=== PATIENT | female | born 1965 | race Caucasian/White ===

== ENCOUNTER 2016-08-16 09:29 | Emergency (ER) | payer BC ==
[~2016-08-16] VITALS: Ht 154.9 cm; Wt 74.8 kg
[2016-08-16 11:59] LABS: BASOPHIL % 0.4 % (0-2); PLATELET COUNT 213 x10^3mcL (130-400); RED CELL DISTRIBUTION WIDTH 13.2 % (11.5-14.5)
[2016-08-16 12:15] LABS: UA SPECIFIC GRAVITY <=1.005 (1.005-1.035); microscopic required? YES; urine erythrocyte 1+ (NEGATIVE)
[2016-08-16 12:30] LABS: ALBUMIN 4.1 g/dL (3.4-5.0); ALKALINE PHOSPHATASE 83 U/L (46-116); ALT/SGPT 52 U/L (14-59); AST/SGOT 38 U/L (15-37); BILIRUBIN TOTAL 0.97 mg/dL (0.20-1.00); CALCIUM 9.1 mg/dL (8.5-10.1); CARBON DIOXIDE 28.1 mmol/L (21-32); CREATININE SERUM 0.9 mg/dL (0.6-1.0); GFR1 > 60 mL/min; GLUCOSE SERUM 96 mg/dL (74-106)
[2016-08-16 12:34] LABS: TOTAL PROTEIN, SERUM 8.7 g/dL (6.4-8.2)
[2016-08-16 13:02] LABS: CHLORIDE SERUM 102 mmol/L (98-107); POTASSIUM SERUM 3.5 mmol/L (3.5-5.1); SODIUM SERUM 139 mmol/L (136-145)
[2016-08-16 15:06] VITALS: BP 138/75
== END 2016-08-16 15:06 | disposition home or self-care (01) ==
LOC: ED 09:29
PROVIDERS: Emergency Medicine
DX: B34.9 Viral infection, unspecified (principal); R82.71 Bacteriuria; R03.0 Elevated blood-pressure reading, without diagnosis of hypertension
CPT/HCPCS: J1885; Q0092

== ENCOUNTER 2016-08-17 20:00 | Emergency (ER) | payer BC ==
[2016-08-17 20:11] VITALS: BP 109/72
== END 2016-08-17 21:46 | disposition home or self-care (01) ==
LOC: ED 20:00
DX: R51 Headache (principal); G47.00 Insomnia, unspecified; Z79.899 Other long term (current) drug therapy
CPT/HCPCS: J1885